=== PATIENT | male | born 1965 | race Caucasian/White ===

== ENCOUNTER 2019-04-29 10:13 | Observation (INO) | payer OTHER ==
[~2019-04-29] VITALS: Ht 182.9 cm; Wt 116.7 kg
[2019-04-29 10:20] VITALS: Ht 182.9 cm; Wt 116.7 kg
[2019-04-29 11:04] LABS: CALCIUM 8.7 mg/dL (8.5-10.1); CARBON DIOXIDE 25.9 mmol/L (21-32); CHLORIDE SERUM 105 mmol/L (98-107); CREATININE SERUM 0.9 mg/dL (0.7-1.3); GFR1 > 60 mL/min; GLUCOSE SERUM 131 mg/dL (74-106); SODIUM SERUM 140 mmol/L (136-145)
[2019-04-29 11:08] LABS: ALBUMIN 3.9 g/dL (3.4-5.0); ALKALINE PHOSPHATASE 87 U/L (46-116); ALT/SGPT 23 U/L (16-63); AST/SGOT 15 U/L (15-37); BILIRUBIN TOTAL 0.83 mg/dL (0.20-1.00)
[2019-04-29 11:11] LABS: BASOPHIL % 0.7 % (0-2); PLATELET COUNT 192 x10^3mcL (130-400)
[2019-04-29 11:12] LABS: RED CELL DISTRIBUTION WIDTH 14.6 % (11.5-14.5)
[2019-04-29 15:22] VITALS: BP 169/101
[2019-04-29 17:12] VITALS: BP 154/86
[2019-04-29 20:24] VITALS: BP 151/79
[2019-04-30 05:27] VITALS: BP 138/81
[2019-04-30 08:01] VITALS: BP 125/82
[2019-04-30] MEDS ORDERED: NOR10 PO (08:58)
[2019-04-30] MEDS ORDERED: ECO81 PO (08:58)
[2019-04-30] MEDS ORDERED: EC NAPROSYN500 MG PO (09:04)
[2019-04-30 09:17] VITALS: BP 125/82
== END 2019-04-30 12:23 | disposition home or self-care (01) ==
LOC: ED 10:13 → DU 13:30
PROVIDERS: Emergency Medicine; ADMIT Hospitalist
DX: R07.2 Precordial pain (principal); I10 Essential (primary) hypertension; Z23 Encounter for immunization
CPT/HCPCS: 83880; 85378; 90658; G0378; J1644; J1885